=== PATIENT | male | born 1945 | race Caucasian/White ===

== ENCOUNTER 2017-06-03 05:41 | Emergency (ER) | payer MEDICARE, OTHER ==
[~2017-06-03] VITALS: Ht 167.6 cm; Wt 74.5 kg
[2017-06-03 05:45] VITALS: Ht 167.6 cm; Wt 74.5 kg
[2017-06-03] MEDS ORDERED: ENALAPRILAT 1.25 MG INJ IV STA (06:32)
[2017-06-03 06:47] LABS: BASOPHILS % 0.5 % (0.0-2.0); EOSINOPHILS # 0.2 10^3/ul (0.0-0.5); EOSINOPHILS % 2.4 % (0.0-7.0); HEMATOCRIT 45.7 % (42.0-52.0); HEMOGLOBIN 14.8 g/dl (14.0-18.0); LYMPHOCYTES # 2.7 10^3/ul (0.8-2.9); LYMPHOCYTES % 44.2 % (15.0-51.0); MEAN CORPUSCULAR HEMOGLOBIN 28.6 pg (29.0-33.0); MEAN CORPUSCULAR HGB CONC 32.4 g/dl (32.0-37.0); MEAN CORPUSCULAR VOLUME 88.4 fl (82.0-101.0); MEAN PLATELET VOLUME 9.4 fl (7.4-10.4); MONOCYTE # 0.5 10^3/ul (0.3-0.9); MONOCYTES % 7.3 % (0.0-11.0); NEUTROPHIL # 2.8 10^3/ul (1.6-7.5); NEUTROPHILS % 45.4 % (39.0-77.0); PLATELET COUNT 236 10^3/UL (140-415); RED BLOOD COUNT 5.17 10^6/ul (4.70-6.10); RED CELL DISTRIBUTION WIDTH 14.2 % (11.5-14.5); WHITE BLOOD COUNT 6.2 10^3/ul (4.8-10.8)
[2017-06-03] MEDS ORDERED: MECLIZINE 12.5 MG TAB PO ONE (07:00)
[2017-06-03 07:02] LABS: BLOOD UREA NITROGEN 11 mg/dl (7-20); CALCIUM 9.3 mg/dl (8.4-10.2); CARBON DIOXIDE 31 mmol/L (21-31); CHLORIDE 102 mmol/L (97-110); CREATININE 1.06 mg/dl (0.61-1.24); GLUCOSE 113 mg/dl (70-220); POTASSIUM 4.3 mmol/L (3.5-5.1)
[2017-06-03 07:16] LABS: TROPONIN-I < 0.012 ng/ml (0.00-0.12)
[2017-06-03 07:20] LABS: ANION GAP 11 (8-16)
[2017-06-03 07:21] LABS: SODIUM 140 mmol/L (135-144)
--- NOTE | 2017-06-03 07:41 | ERD ---
ER Documentation Chief Complaint Date/Time DATE: 06/03/17 TIME: 07:35 Chief Complaint dizziness w/HTN when he checked his BP@[email or web address],took his Atenolol HPI A 2-year-old male with a history of hypertension presenting with complaints of increased blood pressure and dizziness. He states that when he woke up this morning he tried to get out of bed and felt room spinning dizziness. After resting for quite some time, he felt better. However when he tried to lay back down he would feel room spinning dizziness. He states that he has intermittent tinnitus in his left ear for many years. 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 He states that when he rapidly turns his head sometimes he does feel some room spinning dizziness but never this bad. Currently his dizziness has resolved. He denies any associated headache, chest pain, shortness of breath, vision disturbance, focal weakness or numbness. He denies any earache or tinnitus. He takes atenolol as prescribed for his blood pressure. ROS All systems reviewed and are negative except as per history of present illness. Allergies Allergies: Coded Allergies: No Known Allergy (Unverified , 06/03/17) PMhx/Soc Hx Cardiac Disorders: Yes (Hypertension) Hx Alcohol Use: No Hx Tobacco Use: No Smoking Status: Never smoker FmHx Family History: No diabetes Physical Exam Vitals Vital Signs Date Time Temp Pulse Resp B/P Pulse Ox O2 Delivery O2 Flow Rate FiO2 06/03/17 08:17 78 18 178/91 06/03/17 07:01 Nasal Cannula 06/03/17 05:45 97.7 50 18 192/86 99 Physical Exam Const: Well-appearing, no apparent distress Head: Atraumatic Eyes: Normal Conjunctiva ENT: Normal External Ears, Nose and Mouth. External ear canals with cerumen impaction bilaterally Neck: Full range of motion..~ No meningismus. Resp: Clear to auscultation bilaterally Cardio: Regular rate and rhythm, no murmurs. 2+ distal pulses Abd: Soft, non tender, non distended. Normal bowel sounds Skin: No petechiae or rashes Back: No midline or flank tenderness Ext: No cyanosis, or edema Neur: Awake and alert oriented 3, cranial nerves intact, strength and sensations intact in all 4 extremities. Normal gait and balance. Normal speech Psych: Normal Mood and Affect Result Diagram: 06/03/17 0612 06/03/17 0612 Results 24 hrs Laboratory Tests Test 06/03/17 06:12 White Blood Count 6.210^3/ul Red Blood Count 5.1710^6/ul Hemoglobin 14.8g/dl Hematocrit 45.7% Mean Corpuscular Volume 88.4fl Mean Corpuscular Hemoglobin 28.6pg Mean Corpuscular Hemoglobin Concent 32.4g/dl Red Cell Distribution Width 14.2% Platelet Count 46094^3/UL Mean Platelet Volume 9.4fl Neutrophils % 45.4% Lymphocytes % 44.2% Monocytes % 7.3% Eosinophils % 2.4% Basophils % 0.5% Nucleated Red Blood Cells % 0.0/100WBC Neutrophils # 2.810^3/ul Lymphocytes # 2.710^3/ul Monocytes # 0.510^3/ul Eosinophils # 0.210^3/ul Basophils # 0.010^3/ul Nucleated Red Blood Cells # 0.010^3/ul Sodium Level 140mmol/L Potassium Level 4.3mmol/L Chloride Level 102mmol/L Carbon Dioxide Level 31mmol/L Anion Gap 11 Blood Urea Nitrogen 11mg/dl Creatinine 1.06mg/dl Glucose Level 113mg/dl Calcium Level 9.3mg/dl Troponin I < 0.012ng/ml Current Medications Medications (Trade) Dose Ordered Sig/Jensen Route PRN Reason Start Time Stop Time Status Last Admin Dose Admin Meclizine HCl (Antivert) 25 mg ONCE ONCE PO 06/03/17 07:00 06/03/17 07:01 DC 06/03/17 06:58 Enalaprilat (Vasotec Iv) 1.25 mg ONCE STAT IV 06/03/17 06:32 06/03/17 06:33 DC 06/03/17 06:58 Procedures/MDM EMERGENT LABS AND DIAGNOSTIC STUDIES: Lab Results above were reviewed and interpreted by me. CBC: no anemia or evidence of infection BMP: No evidence of electrolyte abnormality, renal failure, hypoglycemia Troponin within normal limits 12-lead EKG was interpreted by Dorita Witt MD: Normal Sinus Rhythm Normal axis Normal intervals No acute ST or T wave changes suggestive of acute ischemia or STEMI. Radiology Results as interpreted by Radiology below were reviewed by Charity Witt MD: Chest x-ray shows no acute abnormalities Initial Nursing notes reviewed. Previous Medical Records requested via the Electronic Health Record. EMERGENCY DEPARTMENT COURSE / MEDICAL DECISION MAKING: Patient is presenting with dizziness consistent with vertigo and elevated blood pressure. I suspect his vertigo is peripheral in etiology. I have a low suspicion for acute stroke, intracranial hemorrhage, aortic dissection, cardiac arrhythmia, or acute coronary syndrome. I do not think his uncontrolled hypertension is related to his vertigo, however it may be elevated as he does not feel well from the vertigo. I do not think a head CT is warranted at this time. Labs were done to look for any signs of endorgan injury and were normal. EKG was nonischemic. Upon my exam, the patient was asymptomatic. Meclizine was given prophylactically. I gave him enalapril IV for his hypertension. Upon reevaluation, the patient feels well. I recommended [id number] medications for his cerumen impaction. I also recommended he record his daily blood pressures and follow-up with his primary care doctor within the next 2-3 days for blood pressure reevaluation and for possible ear lavage. Patient feels comfortable with the plan. Return precautions were discussed. Patient will be discharged in a stable condition.]. Patient's blood pressure was elevated (>120/80) but appears stable without evidence of hypertensive emergency or urgency. The patient was counseled about the risks of hypertension and urged to pursue outpatient monitoring and therapy within a week with their primary care physician. Departure Diagnosis: Primary Impression: Vertigo Additional Impression: Asymptomatic hypertensive urgency Condition: Stable Patient Instructions: Inner Ear Problems: Causes of Dizziness (Vertigo), Hypertension, Established, Out Of Control, Vertigo, Unspecified Additional Instructions: Keep a record of your blood pressure for the next few days. Follow up with your primary care doctor in 2-3 days to recheck your blood pressure. Return to the ER for any worsening symptoms. Additionally, buy Debrox or any other over the counter medication used to treat ear wax. SULLY WITT MD Jun 03, 2017 07:41
--- NOTE | 2017-06-03 08:00 | RADRPT ---
PROCEDURE: XR Chest. CLINICAL INDICATION: Chest pain. TECHNIQUE: AP Portable chest. COMPARISON: No pertinent prior examinations were submitted for comparison. FINDINGS: The cardiomediastinal silhouette is normal. The aortic arch is tortuous. No focal consolidation, ple ural effusion or pneumothorax is seen. The osseous structures are intact. IMPRESSION: No radiographic evidence of acute cardiopulmonary disease. Physician Lamonte Date Time Electronically viewed and signed by Christy Martínez Physician on 06/03/2017 07:59 CS/
[2017-06-03 08:17] VITALS: BP 178/91; PULSE 78; RESP 18
== END 2017-06-03 08:18 | disposition home or self-care (01) ==
LOC: E/R 05:41
DX: R42 Dizziness and giddiness (principal); I16.0 Hypertensive urgency; I10 Essential (primary) hypertension
CPT/HCPCS: 36415; 71010; 80048; 84484; 85025; 93005; 96374